=== PATIENT | male | born 1940 | race Caucasian/White ===

== ENCOUNTER 2016-12-20 13:23 | Outpatient (CLI) | payer MEDICARE ==
[2016-12-20 15:58] LABS: CHOLESTEROL 98 mg/dL (<200); HDL CHOLESTEROL 32 mg/dL (40-60); LDL 58 mg/dL (0-99); TRIGLYCERIDES 67 mg/dL (30-150)
== END 2016-12-20 23:59 ==
LOC: LAB 13:23
PROVIDERS: ATTEND Internal Medicine Interventional Cardiology
DX: I25.10 Atherosclerotic heart disease of native coronary artery without angina pectoris (principal)
CPT/HCPCS: 36415; 80061-TC; 82306

== ENCOUNTER 2017-07-03 07:39 | Outpatient (CLI) | payer MEDICARE ==
[2017-07-03] MEDS ORDERED: REGADENOSON 0.4 MG/5 ML DISP.SYRIN IVP ONE (09:00)
== END 2017-07-03 23:59 | disposition home or self-care (01) ==
LOC: RAD 07:39
PROVIDERS: ATTEND Internal Medicine Interventional Cardiology
DX: I25.10 Atherosclerotic heart disease of native coronary artery without angina pectoris (principal); Z95.5 Presence of coronary angioplasty implant and graft
CPT/HCPCS: 78452; A9502; J2785